=== PATIENT | female | born 1980 | race Caucasian/White ===

== ENCOUNTER 2016-09-05 03:19 | Emergency (ER) | payer OTHER ==
[~2016-09-05] VITALS: Ht 152.4 cm; Wt 69.5 kg
[~2016-09-05 03:19] MED LIST: ALPR0.5T6 PO; CEPH500C PO; HYDR-3498 PO; NAPR-688 PO
[2016-09-05 03:29] VITALS: Ht 152.4 cm; Wt 69.5 kg
--- NOTE | 2016-09-05 06:55 | ERD ---
ER Documentation Chief Complaint Date/Time DATE: 09/05/16 TIME: 06:49 Chief Complaint sores in mouth for a month, noticed it spread 3 weeks ago HPI Patient is a 35-year-old female with a history of anxiety who presents to the emergency department with concerns of white plaques in her mouth and tongue. Patient states initially she had noticed white plaques on the right side of her tongue. Patient states yesterday she noticed that she had some white lesions on her left side of her tongue. Patient is concerned she may have malignancy at this time. Patient does report a history of smoking in the past. Patient denies any fevers, chills, nausea or vomiting.. She is currently undergoing dental work for poor dentition. Patient patient requesting blood work at this time to rule out malignancy. Patient has appointment scheduled with her dentist at 12 PM today. ROS All systems reviewed and are negative except as per history of present illness. Medications Home Meds Active Scripts Naproxen* (Naproxen*) 500 Mg Tablet, 500 MG PO BID Y for PAIN, #14 TAB Prov:NIKITA TORRES DO 10/22/15 Hydrocodone Bit-Acetaminophen* (Laurel*) 5-325 Mg Tab, 1 TAB PO Q4H Y for PAIN LEVEL 6-10, #14 TAB Prov:NIKITA TORRES DO 10/22/15 Cephalexin* (Cephalexin*) 500 Mg Capsule, 500 MG PO Q8, #21 CAP Prov:BRIANNIKITA DO 10/22/15 Reported Medications Alprazolam* (Alprazolam*) 0.5 Mg Tablet, 0.5 MG PO DAILY Y for ANXIETY, TAB 04/21/14 Allergies Allergies: Coded Allergies: No Known Allergy (Unverified , 10/22/15) PMhx/Soc History of Surgery: No Anesthesia Reaction: No Hx Neurological Disorder: No Hx Respiratory Disorders: No Hx Cardiac Disorders: No Hx Psychiatric Problems: Yes (ANXIETY) Hx Miscellaneous Medical Probl: No Hx Alcohol Use: No Hx Substance Use: No Hx Tobacco Use: No Smoking Status: Former smoker FmHx Family History: No diabetes Physical Exam Vitals Vital Signs Date Time Temp Pulse Resp B/P Pulse Ox O2 Delivery O2 Flow Rate FiO2 09/05/16 03:29 98.3 86 16 126/79 100 Physical Exam GENERAL: Well-developed, well-nourished female. Appears in no acute distress. Speaking in full sentences. HEAD: Normocephalic, atraumatic. EYES: Pupils are equally reactive bilaterally. EOMs grossly intact. No conjunctival erythema. ENT: Moist mucous membranes. No uvula deviation. No kissing tonsils. White plaque-like lesions noted on the bilateral aspects of tongue. Cannot be scraped off. White plaque like lesion noted on the patient's left buccal region. Poor dentition. NECK: Supple. No meningismus. Normal range of motion of the neck. LUNG: Clear to auscultation bilaterally. No rhonchi, wheezing, rales or coarse breath sounds. HEART: Regular rate and rhythm. No murmurs, rubs or gallops. ABDOMEN: No scars, ecchymosis or rashes noted. Soft, nontender, and nondistended. Positive bowel sounds in all four quadrants. No rebound tenderness , no guarding. (-) McBurney's point tenderness. No CVA tenderness. BACK: No midline tenderness. EXTREMITIES: Equal pulses bilaterally. No peripheral clubbing, cyanosis or edema. No unilateral leg swelling. NEUROLOGIC: Alert and oriented. Moving all four extremities without any difficulty. Normal speech. Steady gait. SKIN: Normal color. Warm and dry. No rashes or lesions. Procedures/MDM MEDICAL DECISION MAKING: Patient is a 35-year-old female who presents with concerns of white lesions on her tongue and her mouth 3 weeks. Vital signs were reviewed. Patient is afebrile. Patient was not hypoxic. Patient was hemodynamically stable. ENT exam revealed white plaque-like lesions in the patient's tongue and left inner cheek. Were unable to be scraped off. At this time the patient's presentation is most consistent with mouth sores vs leukoplakia. I explained to the patient that I am unable to rule out malignancy at this time given her history of smoking. I explained to the patient that there are no blood tests that can be done to rule out malignancy. Patient will need to have a biopsy done for definitive diagnosis. Patient does have good follow-up with a dentist scheduled for 12 PM today. Patient was advised to discuss her concerns with her dentist. PRESCRIPTION: DISCHARGE: At this time, patient is stable for discharge and outpatient management. I have instructed the patient to follow-up with his/her primary care physician in 1-2 days. I have discussed with the patient the possibility of needing to see a specialist for further workup and imaging studies if symptoms persist. I have instructed the patient to promptly return to the ER for any new or worsening symptoms including increased pain, fever, nausea, vomiting, weakness or LOC. The patient and/or family expressed understanding of and agreement with this plan. All questions were answered. Home care instructions were provided. Departure Diagnosis: Primary Impression: Tongue sore Condition: Stable Patient Instructions: Mouth and Throat Tumors Referrals: [facility] YOU HAVE RECEIVED A MEDICAL SCREENING EXAM AND THE RESULTS INDICATE THAT YOU DO NOT HAVE A CONDITION THAT REQUIRES URGENT TREATMENT IN THE EMERGENCY DEPARTMENT. FURTHER EVALUATION AND TREATMENT OF YOUR CONDITION CAN WAIT UNTIL YOU ARE SEEN IN YOUR DOCTORS OFFICE WITHIN THE NEXT 1-2 DAYS. IT IS YOUR RESPONSIBILITY TO MAKE AN APPOINTMENT FOR FOLOW-UP CARE. IF YOU HAVE A PRIMARY DOCTOR --you should call your primary doctor and schedule an appointment IF YOU DO NOT HAVE A PRIMARY DOCTOR YOU CAN CALL OUR PHYSICIAN REFERRAL HOTLINE AT IF YOU CAN NOT AFFORD TO SEE A PHYSICIAN YOU CAN CHOSE FROM THE FOLLOWING [facility] [address] [facility]. [facility] [address] [facility]. [facility] [address] [facility] [address] [facility] [address] [facility] [facility]. [address] [facility]. [facility] YOU HAVE RECEIVED A MEDICAL SCREENING EXAM AND THE RESULTS INDICATE THAT YOU DO NOT HAVE A CONDITION THAT REQUIRES URGENT TREATMENT IN THE EMERGENCY DEPARTMENT. FURTHER EVALUATION AND TREATMENT OF YOUR CONDITION CAN WAIT UNTIL YOU ARE SEEN IN YOUR DOCTORS OFFICE WITHIN THE NEXT 1-2 DAYS. IT IS YOUR RESPONSIBILITY TO MAKE AN APPOINTMENT FOR FOLOW-UP CARE. IF YOU HAVE A PRIMARY DOCTOR --you should call your primary doctor and schedule and appointment IF YOU DO NOT HAVE A PRIMARY DOCTOR YOU CAN CALL OUR PHYSICIAN REFERRAL HOTLINE AT . IF YOU CAN NOT AFFORD TO SEE A PHYSICIAN YOU CAN CHOSE FROM THE FOLLOWING [facility]: [facility] [address] [place] [address] [facility] [address] [place] [address] [facility] [address] [place] [address] [facility] ([facility] walk in clinic) Additional Instructions: Follow-up with her dentist as scheduled at 12 PM today. Unable to rule out malignancy at this time. Call your primary care doctor TOMORROW for an appointment during the next 1-2 days.See the doctor sooner or return here if your condition worsens before your appointment time. AMIE MALIK PA-C Sep 05, 2016 06:55
== END 2016-09-05 05:09 | disposition left against medical advice (07) ==
LOC: FTE 03:19
DX: K13.79 Other lesions of oral mucosa (principal); Z87.891 Personal history of nicotine dependence
CPT/HCPCS: 99282

== ENCOUNTER 2017-03-01 00:11 | Emergency (ER) | payer OTHER ==
[~2017-03-01] VITALS: Ht 149.9 cm; Wt 70.4 kg
[2017-03-01 00:19] VITALS: Ht 149.9 cm; Wt 70.4 kg
--- NOTE | 2017-03-01 01:03 | ERD ---
ER Documentation Chief Complaint Chief Complaint BIBA x anxiety attack symptoms HPI BIBA for anxiety, pt c/o palpations, pt repots that symptoms continues , reports blurry vision . ROS All systems reviewed and are negative except as per history of present illness. Medications Home Meds Active Scripts Naproxen* (Naproxen*) 500 Mg Tablet, 500 MG PO BID Y for PAIN, #14 TAB Prov:NIKITA TORRES DO 10/22/15 Hydrocodone Bit-Acetaminophen* ([place]*) 5-325 Mg Tab, 1 TAB PO Q4H Y for PAIN LEVEL 6-10, #14 TAB Prov:NIKITA TORRES DO 10/22/15 Cephalexin* (Cephalexin*) 500 Mg Capsule, 500 MG PO Q8, #21 CAP Prov:NIKITA TORRES DO 10/22/15 Reported Medications Alprazolam* (Alprazolam*) 0.5 Mg Tablet, 0.5 MG PO DAILY Y for ANXIETY, TAB 04/21/14 Allergies Allergies: Coded Allergies: No Known Allergy (Unverified , 10/22/15) PMhx/Soc History of Surgery: No Anesthesia Reaction: No Hx Neurological Disorder: No Hx Respiratory Disorders: No Hx Cardiac Disorders: No Hx Psychiatric Problems: Yes (ANXIETY) Hx Miscellaneous Medical Probl: No Hx Alcohol Use: No Hx Substance Use: No Hx Tobacco Use: No Smoking Status: Never smoker Physical Exam Vitals Vital Signs Date Time Temp Pulse Resp B/P Pulse Ox O2 Delivery O2 Flow Rate FiO2 03/01/17 00:19 98.7 86 22 121/77 100 Vitals stable, triage notes reviewed Physical Exam Const: Well-nourished well-appearing anxious 36-year-old female in no acute distress Head: Eyes: ENT: Neck: JVD. Resp: Aspirations even and unlabored, clear to auscultation bilaterally rales wheezes or rhonchi Cardio: S1-S2, no S3-S4, regular rate and rhythm, no murmurs Abd: Ext: Neur: Awake and alert Psych: Histrionic, anxious, mildly agitated Procedures/MDM EKG read by Dr Winter Rate/Rhythm: Regular rate and rhythm at a rate of 67 Intervals: Normal Impression: No evidence of ischemia or arrhythmia A 33-year-old female to emergency department by EMS what appeared to be anxiety reaction, chest pain and palpitations. No evidence of chest pain at this time. No diaphoresis. No associated symptoms. ECG shows normal sinus rhythm at a ventricular rate of 67 bpm without ectopy, patient has past medical history of palpitations, has been seen at least once a year at this hospital for the last several years for palpitations, patient has been instructed to follow-up with her primary care physician for referral to [facility], patient has been evaluated [facility] in 2016 diagnosed with normal cardiovascular findings. I feel comfortable letting her go home and follow up with Cardiology as an outpatient. Patient is stable with no new complaints during ER course, clinically there is no current evidence to suggest meningitis, sepsis, acute abdomen, acute coronary syndromes, pulmonary embolism or any other emergent condition appearing to require further evaluation or hospitalization. I feel the patient is stable for discharge at this time. I have discussed results, examination findings, the treatment plan with the patient and family present prior to discharge. Indications for emergent reevaluation, side effects of medication were also discussed. All questions were answered. Patient verbalizes understanding and agrees with plan of care. Departure Diagnosis: Primary Impression: Anxiety reaction Additional Impression: Palpitations Condition: Critical Patient Instructions: Palpitations Additional Instructions: Thank you for for coming to the [facility] for your care today. Please ask your nurse or provider if you have questions about your care today and do not leave until all your questions have been answered. Please use any medications given as directed and follow-up with your doctor (or the doctor you were referred to) in the next 2-3 days. If you do not have a primary care doctor you may follow up at the [facility] (listed below). You may also use motrin and tylenol as needed for fever and/or pain unless instructed otherwise by your provider or nurse. Indications for more urgent follow-up have been discussed, but you may return to the Emergency Department at ANY time for any worrisome or worsening symptoms. If you have abdominal pain, please know that no test or exam you received is perfect and you should follow up within 8 hours for continued pain. If you had any imaging studies today, such as an X-Ray or CT Scan, these studies will be reviewed later by a radiologist. You will be called if there are important findings that were not identified today, so make sure the contact information you provided at registration is correct. If you received any narcotic pain control medicine today, such as Vicodin, Morphine or Dilaudid, your coordination and judgment may be affected for a number of hours. Please do not drive or operate heavy machinery, and you may want someone to assist you at home. If you were given a prescription for narcotic medication, be aware that it is very addictive- use sparingly and only if necessary. BARBARA WISE Mar 01, 2017 01:03
== END 2017-03-01 02:58 | disposition home or self-care (01) ==
LOC: FTE 00:11
DX: F41.1 Generalized anxiety disorder (principal)
CPT/HCPCS: 93005; Z7502